=== PATIENT | female | born 1945 | race African-American/Black ===

== ENCOUNTER 2020-08-05 13:58 | Inpatient (IN) | payer MEDICARE, OTHER ==
[~2020-08-05] VITALS: Ht 160 cm; Wt 100.7 kg
[~2020-08-05 13:58] MED LIST: ASPI-1406; ATOR20TA65; BENA40TA9; CARV6.2548; DILT180C87; PANT40TA51; PIOG15TA66
[2020-08-05] MEDS ORDERED: METOPROLOL TARTRATE 25MG TABLET PEG ONE (14:30)
[2020-08-05] MEDS: METOPROLOL TARTRATE 5MG/5ML VIAL IV SCH ×3 (14:49→15:36)
[2020-08-05 14:50] LABS: BG BASE EXCESS 0.2 mmol/L (-2.0-2.0); BG CARBOXYHEMOGLOBIN 0.8 % (0.5-1.5); BG DEOXYHEMOGLOBIN 7.2 % (0.0-5.0); BG FRACTION INSPIRED OXYGEN 28; BG HCO3 ACT 24.4 mmol/L (22.0-26.0); BG METHEMOGLOBIN 1.2 % (0.0-1.5); BG OXYGEN SATURATION 92.7 % (92.0-98.5); BG OXYHEMOGLOBIN 90.8 % (94.0-97.0); BG PCO2 37.5 mmHg (35.0-45.0); BG PH 7.432 (7.350-7.450); BG PO2 75.8 mmHg (75.0-100.0); BG SAMPLE SITE RIGHT RADIAL; BG TOTAL HEMOGLOBIN 7.1 g/dL (12.0-18.0); BG VENT MODE NASAL CANNULA
[2020-08-05 15:20] LABS: BASOPHILS % 0.5 % (0.0-2.0); CHLORIDE 113 mEq/L (98-107); EOSINOPHILS % 0.3 % (0.0-5.0); HEMATOCRIT. 22.5 % (36.0-48.0); LYMPHOCYTES % 10.9 % (20.0-50.0); MEAN CORPUSCULAR HEMOGLOBIN 17.3 pg (28.0-32.0); MEAN CORPUSCULAR VOLUME 61.1 fL (81.0-99.0); MEAN PLATELET VOLUME 9.8 fl (7.4-10.4); MONOCYTES % 8.9 % (2.0-8.0); NEUTROPHILS % 79.4 % (40.0-76.0); PLATELET 335 x1000/uL (130-400); RED BLOOD CELL COUNT 3.69 mill/uL (4.2-5.4); RED CELL DISTRIBUTION WIDTH 16.2 % (11.6-14.6)
[2020-08-05 15:22] LABS: HEMOGLOBIN. 6.4 g/dL (12.0-16.0); INR 2.1; PROTHROMBIN TIME 21.3 sec (9.6-11.0)
[2020-08-05] MEDS ORDERED: AMIODARONE HCL 150 MG in DEXT 5% WATER 97 ML IV ONE (15:30)
[2020-08-05] MEDS ORDERED: AMIODARONE HCL 150 MG in DEXT 5% WATER 97 ML IV NR (15:45)
[2020-08-05] MEDS ORDERED: DOXYCYCLINE 100MG in DEXTROSE 5% WATER 100ML IV NR (15:56)
[2020-08-05] MEDS ORDERED: CEFTRIAXONE 2 G PREMIX 50 ML IV ONE (16:00)
[2020-08-05] MEDS ORDERED: DOXYCYCLINE HYCLATE 100 MG/VIAL IV ONE (16:00)
[2020-08-05 16:15] LABS: PLATELET ESTIMATE NORMAL
[2020-08-05] MEDS ORDERED: AMIODARONE HCL 900 MG in DEXT 5% WATER 482 ML IV PRN (17:00)
[2020-08-05] MEDS: AMIODARONE HCL 900 MG in DEXT 5% WATER 482 ML IV PRN (17:28)
[2020-08-05] MEDS ORDERED: ONDANSETRON HCL 4MG/2ML INJ IV ONE (18:30)
[2020-08-05 23:57] LABS: HEMATOCRIT 31.6 % (36.0-48.0); HEMOGLOBIN 9.7 g/dL (12.0-16.0)
[2020-08-06] VITALS (31 sets, daily range): BP systolic 120–171; BP diastolic 64–112
[2020-08-06 00:16] LABS: INR 1.6; PROTHROMBIN TIME 16.6 sec (9.6-11.0)
[2020-08-06 03:46] LABS: CLARITY URINE CLEAR (CLEAR); COLOR URINE YELLOW (YELLOW); KETONES URINE TRACE (NEGATIVE); LEUKOCYTE ESTERASE URINE TRACE (NEGATIVE); NITRITE URINE NEGATIVE (NEGATIVE); OCCULT BLOOD URINE NEGATIVE (NEGATIVE); PH URINE 5.5 (4.5-8.0); PROTEIN URINE NEGATIVE (NEGATIVE); SPECIFIC GRAVITY URINE 1.019 (1.005-1.030)
[2020-08-06] MEDS: AMIODARONE HCL 900 MG in DEXT 5% WATER 482 ML IV PRN (10:35)
[2020-08-06] MEDS ORDERED: ACETAMINOPHEN 325MG TABLET PO PRN (12:30)
[2020-08-06] MEDS ORDERED: GUAIFENESIN 200MG/10ML SUGAR FREE UDC PO PRN (12:30)
[2020-08-06] MEDS ORDERED: MAGNESIUM/ALUMINUM HYDROXIDE/SIMETHICONE 30ML UDC PO PRN (12:30)
[2020-08-06] MEDS ORDERED: DOCUSATE SODIUM 100MG CAPSULE PO PRN (12:30)
[2020-08-06] MEDS ORDERED: HYDROCODONE/ACETAMINOPHEN 5/325MG TABLET PO PRN (12:30)
[2020-08-06] MEDS ORDERED: DEXTROSE 50% WATER 50ML SYRINGE IV PRN (12:30)
[2020-08-06] MEDS ORDERED: IPRATROPIUM/ALBUTEROL 0.5-3(2.5)MG/3ML NEB NEB PRN (12:30)
[2020-08-06] MEDS ORDERED: DIPHENHYDRAMINE 50MG/ML VIAL IV PRN (12:30)
[2020-08-06] MEDS ORDERED: CLONIDINE 0.1MG TABLET PO PRN (12:30)
[2020-08-06] MEDS ORDERED: LORAZEPAM 0.5MG TABLET PO PRN (12:30)
[2020-08-06] MEDS ORDERED: LEVOFLOXACIN 500MG PREMIX 100 ML IV SCH ×2 (12:30→13:00)
[2020-08-06] MEDS ORDERED: NA PHOS,M-B/NA PHOS,DI-BA ENEMA 118ML PR PRN (12:30)
[2020-08-06] MEDS ORDERED: ASPIRIN 81MG EC TABLET PO SCH (13:00)
[2020-08-06] MEDS: BLOOD SUGAR DIAGNOSTIC STRIP TEST SCH ×3 (13:00→20:51)
[2020-08-06] MEDS: INSULIN LISPRO 100 UNITS/ML SUBCUT SCH ×3 (13:20→20:51)
[2020-08-06] MEDS ORDERED: POTASSIUM CHLORIDE 20MEQ TABLET SR PO NR (14:00)
[2020-08-06] MEDS: ONDANSETRON HCL 4MG/2ML INJ IV PRN (14:12)
[2020-08-06] MEDS: PANTOPRAZOLE SODIUM 40 MG/VIAL IV SCH ×2 (14:12→20:52)
[2020-08-06] MEDS: DILTIAZEM HCL 125 MG in DEXT 5% WATER 100 ML IV PRN ×2 (14:29→23:00)
[2020-08-06] MEDS ORDERED: LEVOFLOXACIN 500MG PREMIX 100 ML IV NR (15:00)
[2020-08-06] MEDS ORDERED: FUROSEMIDE 40MG/4ML VIAL IVP NR (15:45)
[2020-08-06 16:17] LABS: HEMATOCRIT. 29.1 % (36.0-48.0); HEMOGLOBIN. 8.9 g/dL (12.0-16.0); MEAN CORPUSCULAR HEMOGLOBIN 19.2 pg (28.0-32.0); MEAN PLATELET VOLUME 9.6 fl (7.4-10.4); PLATELET 312 x1000/uL (130-400); RED BLOOD CELL COUNT 4.62 mill/uL (4.2-5.4); RED CELL DISTRIBUTION WIDTH 21.1 % (11.6-14.6)
[2020-08-06 16:37] LABS: CREATINE KINASE 21 IU/L (26-192)
[2020-08-06 16:38] LABS: CREATINE KINASE MB FRACTION < 1.0 ng/mL (0.5-3.6)
[2020-08-06 16:40] LABS: TOTAL IRON BINDING CAPACITY 446 ug/dL (250-450)
[2020-08-06 16:47] LABS: CHLORIDE 112 mEq/L (98-107)
[2020-08-06] MEDS: DILTIAZEM HCL 60MG TABLET PO SCH (18:00)
[2020-08-06 18:15] LABS: NUCLEATED RED BLOOD CELLS 23 /100 WBC; PLATELET ESTIMATE NORMAL
[2020-08-06] MEDS ORDERED: DEXT 5%/0.45% NACL 1000ML 1,000 ML IV SCH (18:15)
[2020-08-06] MEDS ORDERED: PRAV80TA21 MT (18:19)
[2020-08-06] MEDS ORDERED: AMLO5TAB4 MT (18:19)
[2020-08-06] MEDS ORDERED: SUCR1TAB MT (18:19)
[2020-08-06] MEDS ORDERED: RIVA20TA MT (18:19)
[2020-08-06] MEDS: DEXT 5%/LACTATED RINGERS 1,000 ML IV SCH (19:27)
[2020-08-06] MEDS ORDERED: LEVETIRACETAM 500 MG in SODIUM CHLORIDE 0.9% 100 ML IV SCH (19:30)
[2020-08-06] MEDS: LEVETIRACETAM 500MG PREMIX 100 ML IV SCH (20:24)
[2020-08-06] MEDS: SUCRALFATE 1 G/10 ML UDC PO SCH (20:52)
[2020-08-06] MEDS ORDERED: GADOTERATE MEGLUMINE 5 MMOL/10 ML VIAL IV ONE (21:00)
[2020-08-07] VITALS (69 sets, daily range): BP systolic 82–147; BP diastolic 46–101
[2020-08-07] MEDS: DEXAMETHASONE 10 MG/ML VIAL IV SCH ×3 (00:05→11:07)
[2020-08-07] MEDS: DILTIAZEM HCL 60MG TABLET PO SCH ×5 (00:06→23:06)
[2020-08-07 01:01] LABS: CREATINE KINASE 26 IU/L (26-192)
[2020-08-07 01:02] LABS: CREATINE KINASE MB FRACTION < 1.0 ng/mL (0.5-3.6)
[2020-08-07 05:44] LABS: BASOPHILS % 0.2 % (0.0-2.0); EOSINOPHILS % 0.3 % (0.0-5.0); HEMATOCRIT. 27.6 % (36.0-48.0); HEMOGLOBIN. 8.6 g/dL (12.0-16.0); LYMPHOCYTES % 8.2 % (20.0-50.0); MEAN CORPUSCULAR HEMOGLOBIN 19.9 pg (28.0-32.0); MEAN CORPUSCULAR VOLUME 64.1 fL (81.0-99.0); MONOCYTES % 3.8 % (2.0-8.0); NEUTROPHILS % 87.5 % (40.0-76.0); RED BLOOD CELL COUNT 4.31 mill/uL (4.2-5.4); RED CELL DISTRIBUTION WIDTH 20.2 % (11.6-14.6)
[2020-08-07 05:50] LABS: CHLORIDE 108 mEq/L (98-107)
[2020-08-07 06:02] LABS: CREATINE KINASE MB FRACTION < 1.0 ng/mL (0.5-3.6); LDL CHOLESTEROL 75 mg/dL (5-100)
[2020-08-07 06:03] LABS: HDL CHOLESTEROL 38 mg/dL (40-59); T4 FREE 1.98 ng/dL (0.76-1.46)
[2020-08-07 06:04] LABS: CREATINE KINASE 19 IU/L (26-192)
[2020-08-07] MEDS: INSULIN LISPRO 100 UNITS/ML SUBCUT SCH ×4 (06:22→20:14)
[2020-08-07] MEDS: SUCRALFATE 1 G/10 ML UDC PO SCH ×4 (06:22→20:12)
[2020-08-07] MEDS: BLOOD SUGAR DIAGNOSTIC STRIP TEST SCH ×4 (06:22→20:14)
[2020-08-07 06:28] LABS: D-DIMER 0.86 mg/L FEU (<0.50); INR 1.6; PROTHROMBIN TIME 16.7 sec (9.6-11.0)
[2020-08-07] MEDS ORDERED: LIDOCAINE HCL 1% 20ML VIAL (Pyxis) INJ ONE (07:19)
[2020-08-07] MEDS: PANTOPRAZOLE SODIUM 40 MG/VIAL IV SCH ×2 (08:52→20:12)
[2020-08-07] MEDS: LEVETIRACETAM 500MG PREMIX 100 ML IV SCH ×2 (08:52→20:12)
[2020-08-07] MEDS: DILTIAZEM HCL 125 MG in DEXT 5% WATER 100 ML IV PRN ×2 (08:54→16:49)
[2020-08-07] MEDS ORDERED: METOPROLOL TARTRATE 5MG/5ML VIAL IV NR (10:15)
[2020-08-07] MEDS ORDERED: LEVOFLOXACIN 250MG PREMIX 50 ML IV SCH (11:00)
[2020-08-07] MEDS: LEVOFLOXACIN 250MG PREMIX 50 ML IV SCH (11:07)
[2020-08-07] MEDS: DEXT 5%/LACTATED RINGERS 1,000 ML IV SCH (11:10)
[2020-08-07] MEDS ORDERED: POTASSIUM CHLORIDE INJ 40 MEQ in DEXT 5% WATER 250 ML IV ONE (12:00)
[2020-08-07 12:07] LABS: MEAN PLATELET VOLUME 9.5 fl (7.4-10.4); PLATELET 271 x1000/uL (130-400)
[2020-08-07] MEDS ORDERED: SENNOSIDES/DOCUSATE SOD 8.6/50MG TABLET PO PRN (15:45)
[2020-08-07] MEDS: FUROSEMIDE 40MG/4ML VIAL IVP SCH (16:29)
[2020-08-07] MEDS: IRON SUCROSE COMPLEX 100 MG/5 ML ML IV SCH (16:37)
[2020-08-07] MEDS: DEXAMETHASONE 4MG/ML 1ML VIAL IV SCH ×2 (18:08→23:06)
[2020-08-07 20:10] LABS: HEMATOCRIT 26.6 % (36.0-48.0); HEMOGLOBIN 8.4 g/dL (12.0-16.0)
[2020-08-07] MEDS: METOPROLOL TARTRATE 25MG TABLET PO SCH (20:13)
[2020-08-07] MEDS: ENOXAPARIN 60MG/0.6ML SYR SUBCUT SCH (20:14)
[2020-08-08] VITALS (93 sets, daily range): BP systolic 78–175; BP diastolic 39–137
[2020-08-08] MEDS: DILTIAZEM HCL 125 MG in DEXT 5% WATER 100 ML IV PRN ×3 (01:24→19:13)
[2020-08-08] MEDS: DEXAMETHASONE 4MG/ML 1ML VIAL IV SCH ×4 (05:16→23:12)
[2020-08-08] MEDS: DILTIAZEM HCL 60MG TABLET PO SCH ×2 (05:17→11:22)
[2020-08-08 05:26] LABS: HEMATOCRIT. 27.5 % (36.0-48.0); HEMOGLOBIN. 8.4 g/dL (12.0-16.0); MEAN CORPUSCULAR HEMOGLOBIN 19.4 pg (28.0-32.0); MEAN CORPUSCULAR VOLUME 63.4 fL (81.0-99.0); RED BLOOD CELL COUNT 4.33 mill/uL (4.2-5.4)
[2020-08-08] MEDS ORDERED: DIGOXIN 500MCG/2ML AMP IV NR ×2 (05:30→07:30)
[2020-08-08] MEDS: SUCRALFATE 1 G/10 ML UDC PO SCH ×4 (05:40→20:19)
[2020-08-08 05:53] LABS: CHLORIDE 105 mEq/L (98-107)
[2020-08-08] MEDS: BLOOD SUGAR DIAGNOSTIC STRIP TEST SCH ×4 (05:55→20:21)
[2020-08-08] MEDS: INSULIN LISPRO 100 UNITS/ML SUBCUT SCH ×4 (06:05→20:21)
[2020-08-08 08:12] LABS: NUCLEATED RED BLOOD CELLS 2 /100 WBC
[2020-08-08 08:15] LABS: PLATELET ESTIMATE NORMAL
[2020-08-08 08:16] LABS: MEAN PLATELET VOLUME 9.7 fl (7.4-10.4); PLATELET 289 x1000/uL (130-400)
[2020-08-08] MEDS: ENOXAPARIN 60MG/0.6ML SYR SUBCUT SCH (08:41)
[2020-08-08] MEDS: PANTOPRAZOLE SODIUM 40 MG/VIAL IV SCH ×2 (08:41→20:19)
[2020-08-08] MEDS: IRON SUCROSE COMPLEX 100 MG/5 ML ML IV SCH (08:41)
[2020-08-08] MEDS: FUROSEMIDE 40MG/4ML VIAL IVP SCH (08:41)
[2020-08-08] MEDS: METOPROLOL TARTRATE 25MG TABLET PO SCH (08:42)
[2020-08-08] MEDS: LEVETIRACETAM 500MG PREMIX 100 ML IV SCH ×2 (08:43→20:19)
[2020-08-08] MEDS: BISACODYL 5MG TABLET PO SCH (08:43)
[2020-08-08] MEDS: LEVOFLOXACIN 250MG PREMIX 50 ML IV SCH (11:23)
[2020-08-08] MEDS: ONDANSETRON HCL 4MG/2ML INJ IV PRN (15:09)
[2020-08-08] MEDS: DILTIAZEM HCL 90MG TABLET PO SCH ×2 (17:09→23:12)
[2020-08-08] MEDS: METOPROLOL TARTRATE 50MG TABLET PO SCH (20:19)
[2020-08-08] MEDS: ENOXAPARIN 100MG/ML SYR SUBCUT SCH (20:20)
[2020-08-09] VITALS (69 sets, daily range): BP systolic 107–158; BP diastolic 27–114
[2020-08-09] MEDS: DEXAMETHASONE 4MG/ML 1ML VIAL IV SCH (05:24)
[2020-08-09] MEDS: DILTIAZEM HCL 90MG TABLET PO SCH (05:25)
[2020-08-09 05:48] LABS: CHLORIDE 103 mEq/L (98-107)
[2020-08-09 05:53] LABS: HEMATOCRIT. 29.6 % (36.0-48.0); HEMOGLOBIN. 8.9 g/dL (12.0-16.0); MEAN CORPUSCULAR HEMOGLOBIN 19.2 pg (28.0-32.0); MEAN CORPUSCULAR VOLUME 63.7 fL (81.0-99.0); MEAN PLATELET VOLUME 9.5 fl (7.4-10.4); PLATELET 317 x1000/uL (130-400); RED BLOOD CELL COUNT 4.65 mill/uL (4.2-5.4); RED CELL DISTRIBUTION WIDTH 22.1 % (11.6-14.6)
[2020-08-09] MEDS: BLOOD SUGAR DIAGNOSTIC STRIP TEST SCH ×4 (06:01→20:54)
[2020-08-09] MEDS: SUCRALFATE 1 G/10 ML UDC PO SCH ×4 (06:01→20:53)
[2020-08-09] MEDS: INSULIN LISPRO 100 UNITS/ML SUBCUT SCH ×4 (06:01→20:55)
[2020-08-09] MEDS: DILTIAZEM HCL 125 MG in DEXT 5% WATER 100 ML IV PRN (06:10)
[2020-08-09 07:37] LABS: NUCLEATED RED BLOOD CELLS 3 /100 WBC
[2020-08-09 07:38] LABS: PLATELET ESTIMATE NORMAL
[2020-08-09] MEDS: PANTOPRAZOLE SODIUM 40 MG/VIAL IV SCH ×2 (08:34→20:53)
[2020-08-09] MEDS: FUROSEMIDE 40MG/4ML VIAL IVP SCH (08:34)
[2020-08-09] MEDS: IRON SUCROSE COMPLEX 100 MG/5 ML ML IV SCH (08:34)
[2020-08-09] MEDS: LEVETIRACETAM 500MG PREMIX 100 ML IV SCH ×2 (08:35→19:42)
[2020-08-09] MEDS: BISACODYL 5MG TABLET PO SCH (08:35)
[2020-08-09] MEDS: METOPROLOL TARTRATE 50MG TABLET PO SCH ×3 (08:35→17:23)
[2020-08-09] MEDS: ENOXAPARIN 100MG/ML SYR SUBCUT SCH ×2 (08:35→20:53)
[2020-08-09] MEDS ORDERED: POTASSIUM CHLORIDE 20MEQ/PACKET PO NR (09:30)
[2020-08-09] MEDS: LEVOFLOXACIN 250MG PREMIX 50 ML IV SCH (11:07)
[2020-08-09] MEDS: DILTIAZEM HCL 60MG TABLET PO SCH ×2 (12:54→17:22)
[2020-08-09] MEDS: SILDENAFIL CITRATE 20MG TABLET PO SCH (21:01)
[2020-08-10] VITALS (23 sets, daily range): BP systolic 114–154; BP diastolic 19–80
[2020-08-10] MEDS: DILTIAZEM HCL 60MG TABLET PO SCH ×3 (00:25→11:57)
[2020-08-10] MEDS: SUCRALFATE 1 G/10 ML UDC PO SCH ×4 (05:36→20:21)
[2020-08-10] MEDS: SILDENAFIL CITRATE 20MG TABLET PO SCH ×3 (05:37→20:23)
[2020-08-10 05:55] LABS: BASOPHILS % 0.1 % (0.0-2.0); HEMATOCRIT. 31.4 % (36.0-48.0); HEMOGLOBIN. 9.5 g/dL (12.0-16.0); LYMPHOCYTES % 11.3 % (20.0-50.0); MEAN CORPUSCULAR HEMOGLOBIN 19.1 pg (28.0-32.0); MEAN CORPUSCULAR VOLUME 63.1 fL (81.0-99.0); MEAN PLATELET VOLUME 9.4 fl (7.4-10.4); MONOCYTES % 7.4 % (2.0-8.0); NEUTROPHILS % 81.2 % (40.0-76.0); PLATELET 339 x1000/uL (130-400); RED BLOOD CELL COUNT 4.97 mill/uL (4.2-5.4); RED CELL DISTRIBUTION WIDTH 22.6 % (11.6-14.6)
[2020-08-10] MEDS: BLOOD SUGAR DIAGNOSTIC STRIP TEST SCH ×4 (05:59→20:21)
[2020-08-10] MEDS: INSULIN LISPRO 100 UNITS/ML SUBCUT SCH ×4 (06:00→20:33)
[2020-08-10] MEDS: METOPROLOL TARTRATE 50MG TABLET PO SCH ×3 (08:11→17:24)
[2020-08-10] MEDS: ENOXAPARIN 100MG/ML SYR SUBCUT SCH ×2 (08:11→20:22)
[2020-08-10] MEDS: BISACODYL 5MG TABLET PO SCH (08:11)
[2020-08-10] MEDS: FUROSEMIDE 40MG/4ML VIAL IVP SCH (08:11)
[2020-08-10] MEDS: PANTOPRAZOLE SODIUM 40 MG/VIAL IV SCH ×2 (08:11→20:21)
[2020-08-10] MEDS: LEVETIRACETAM 500MG PREMIX 100 ML IV SCH ×2 (08:12→20:21)
[2020-08-10 09:44] LABS: BG BASE EXCESS 3.2 mmol/L (-2.0-2.0); BG DEOXYHEMOGLOBIN 8.3 % (0.0-5.0); BG FRACTION INSPIRED OXYGEN 21; BG METHEMOGLOBIN 0.7 % (0.0-1.5); BG OXYGEN SATURATION 91.6 % (92.0-98.5); BG PCO2 43.8 mmHg (35.0-45.0); BG PH 7.424 (7.350-7.450); BG PO2 66.3 mmHg (75.0-100.0); BG SAMPLE SITE LEFT RADIAL; BG TOTAL HEMOGLOBIN 10.2 g/dL (12.0-18.0); BG VENT MODE ROOM AIR
[2020-08-10] MEDS: LEVOFLOXACIN 250MG PREMIX 50 ML IV SCH (10:14)
[2020-08-10] MEDS ORDERED: IPRATROPIUM/ALBUTEROL 0.5-3(2.5)MG/3ML NEB NEB PRN (14:30)
[2020-08-10] MEDS: DILTIAZEM HCL 120MG CAPSULE CD 24HR PO SCH (17:23)
[2020-08-11] VITALS: BP 129/55
[2020-08-11 03:40] VITALS: BP 129/60
[2020-08-11] MEDS: SILDENAFIL CITRATE 20MG TABLET PO SCH ×2 (05:12→13:25)
[2020-08-11 07:04] LABS: CHLORIDE 103 mEq/L (98-107)
[2020-08-11 07:28] LABS: T4 FREE 1.56 ng/dL (0.76-1.46)
[2020-08-11 07:32] LABS: HEMATOCRIT. 32.2 % (36.0-48.0); MEAN CORPUSCULAR HEMOGLOBIN 19.9 pg (28.0-32.0); MEAN CORPUSCULAR VOLUME 63.8 fL (81.0-99.0); RED BLOOD CELL COUNT 5.05 mill/uL (4.2-5.4); RED CELL DISTRIBUTION WIDTH 22.2 % (11.6-14.6)
[2020-08-11 08:00] VITALS: BP 128/95
[2020-08-11] MEDS: INSULIN LISPRO 100 UNITS/ML SUBCUT SCH ×3 (08:00→17:09)
[2020-08-11] MEDS: ENOXAPARIN 100MG/ML SYR SUBCUT SCH (08:31)
[2020-08-11] MEDS: LEVETIRACETAM 500MG PREMIX 100 ML IV SCH (08:31)
[2020-08-11] MEDS: BISACODYL 5MG TABLET PO SCH (08:32)
[2020-08-11] MEDS: METOPROLOL TARTRATE 50MG TABLET PO SCH ×3 (08:32→17:09)
[2020-08-11] MEDS: DILTIAZEM HCL 120MG CAPSULE CD 24HR PO SCH ×2 (08:32→17:09)
[2020-08-11] MEDS: BLOOD SUGAR DIAGNOSTIC STRIP TEST SCH ×2 (08:33→17:09)
[2020-08-11] MEDS: SUCRALFATE 1 G/10 ML UDC PO SCH ×2 (08:36→17:08)
[2020-08-11] MEDS: PANTOPRAZOLE SODIUM 40 MG/VIAL IV SCH (08:36)
[2020-08-11] MEDS ORDERED: COSYNTROPIN 0.25MG/ML VIAL IV SCH (08:45)
[2020-08-11] MEDS ORDERED: POTASSIUM CHLORIDE 20MEQ TABLET SR PO SCH (09:00)
[2020-08-11 10:00] VITALS: BP 126/67
[2020-08-11 12:00] VITALS: BP 124/83
[2020-08-11 12:01] LABS: PLATELET 350 x1000/uL (130-400)
[2020-08-11 12:04] LABS: NUCLEATED RED BLOOD CELLS 3 /100 WBC
[2020-08-11 12:05] LABS: PLATELET ESTIMATE NORMAL
[2020-08-11] MEDS ORDERED: METO25TA6 MT ×3 (14:44→15:11)
[2020-08-11] MEDS ORDERED: ALBU90AE INH (14:44)
[2020-08-11] MEDS ORDERED: KEPP500 MT (14:44)
[2020-08-11] MEDS ORDERED: DILT120T13 PO (14:44)
[2020-08-11] MEDS ORDERED: REV20 MT (14:44)
[2020-08-11] MEDS ORDERED: APIX5TAB MT (14:44)
[2020-08-11] MEDS ORDERED: SUCR1TAB30 MT (14:44)
[2020-08-11] MEDS ORDERED: PROT40 MT (14:44)
[2020-08-11 16:00] VITALS: BP 118/58
[2020-08-11] MEDS ORDERED: APIXABAN 5 MG TABLET PO SCH (20:00)
[2020-08-12 04:11] LABS: FOLICLE STIMULATING HORMONE 21.8 mIU/mL (.); LUTEINIZING HORMONE 4.3 mIU/mL (.); PROLACTIN 17.4 ng/mL (4.8-23.3)
== END 2020-08-11 18:41 | disposition home health service (06) | DRG 811 ==
LOC: ER 14:09 → MICUSO 18:07 → EDBEDREQ 18:22 → EDBEDREQTM 18:22 → EDBEDREQSVC 08-06 11:26 → ENRESERV 08-06 11:38 → 6WST 08-06 12:31 → MICUSO 08-07 19:00 → 5EST 08-10 09:33 → 6WST 08-11 11:50
PROVIDERS: ADMIT Internal Medicine; ATTEND Internal Medicine
PROC: 30233N1 Transfusion of Nonautologous Red Blood Cells into Peripheral Vein, Percutaneous Approach (ICD-10-PCS; principal; 2020-08-05)
PROC: 02HV33Z Insertion of Infusion Device into Superior Vena Cava, Percutaneous Approach (ICD-10-PCS; 2020-08-07)
PROC: B548ZZA Ultrasonography of Superior Vena Cava, Guidance (ICD-10-PCS; 2020-08-07)
DX: D50.9 Iron deficiency anemia, unspecified (principal); J18.9 Pneumonia, unspecified organism; E43 Unspecified severe protein-calorie malnutrition; I50.33 Acute on chronic diastolic (congestive) heart failure; G93.40 Encephalopathy, unspecified; J44.0 Chronic obstructive pulmonary disease with (acute) lower respiratory infection; N17.9 Acute kidney failure, unspecified; D68.59 Other primary thrombophilia; I13.0 Hypertensive heart and chronic kidney disease with heart failure and stage 1 through stage 4 chronic kidney disease, or unspecified chronic kidney disease; I31.3 Pericardial effusion (noninflammatory); J91.8 Pleural effusion in other conditions classified elsewhere; I95.9 Hypotension, unspecified; I48.91 Unspecified atrial fibrillation; D32.9 Benign neoplasm of meninges, unspecified; D49.2 Neoplasm of unspecified behavior of bone, soft tissue, and skin; D49.6 Neoplasm of unspecified behavior of brain; E11.22 Type 2 diabetes mellitus with diabetic chronic kidney disease; E66.9 Obesity, unspecified; E78.00 Pure hypercholesterolemia, unspecified; E78.5 Hyperlipidemia, unspecified; I25.10 Atherosclerotic heart disease of native coronary artery without angina pectoris; I27.20 Pulmonary hypertension, unspecified; K44.9 Diaphragmatic hernia without obstruction or gangrene; N18.9 Chronic kidney disease, unspecified; Z86.16 Personal history of COVID-19; K57.90 Diverticulosis of intestine, part unspecified, without perforation or abscess without bleeding; Z20.822 Contact with and (suspected) exposure to COVID-19; I70.0 Atherosclerosis of aorta; E87.6 Hypokalemia; N26.1 Atrophy of kidney (terminal); Z79.01 Long term (current) use of anticoagulants; Z85.3 Personal history of malignant neoplasm of breast; Z79.899 Other long term (current) drug therapy; Z80.9 Family history of malignant neoplasm, unspecified; Z81.8 Family history of other mental and behavioral disorders; Z83.3 Family history of diabetes mellitus; Z90.10 Acquired absence of unspecified breast and nipple; Z90.49 Acquired absence of other specified parts of digestive tract; Z92.3 Personal history of irradiation; Z68.39 Body mass index [BMI] 39.0-39.9, adult; Z79.82 Long term (current) use of aspirin; R60.1 Generalized edema; R94.6 Abnormal results of thyroid function studies
CPT/HCPCS: 36415; 36600; 70553; 71045; 71250; 74176; 76604; 76700; 76937; 78580; 80048; 80053; 80061; 81003; 82024; 82088; 82270; 82375; 82533; 82550; 82553; 82728; 82805; 82962; 83001; 83002; 83036; 83540; 83550; 83735; 83880; 84145; 84146; 84439; 84443; 84481; 84484; 85014; 85018; 85025; 85044; 85049; 85379; 85384; 86300; 86850; 86900; 86920; 87426; 93005; 93306; 93880; 93970; 97116; 97162; 99291; A9577; C1725; C1769; C1893; C9113; J0282; J0696; J0834; J1100; J1160; J1650; J1815; J1940; J1953; J1956; J2405; J3480; J3490; J7040; J7050; J7060; J7121; P9016; U0003; A4315

== ENCOUNTER 2021-04-29 15:10 | Inpatient (IN) | payer MEDICARE, OTHER ==
[~2021-04-29] VITALS: Ht 160 cm; Wt 83.9 kg
[~2021-04-29 15:10] MED LIST changes: +ALBU90AE INH; +APIX5TAB MT; -ASPI-1406; -BENA40TA9; -CARV6.2548; +DILT120T13 PO; -DILT180C87; +KEPP500 MT; +METO25TA6 MT; -PANT40TA51; -PIOG15TA66; +PRAV80TA21 MT; +PROT40 MT; +REV20 MT; +SUCR1TAB MT; +SUCR1TAB30 MT
[2021-04-29] MEDS ORDERED: POTA20TA82 PO (15:27)
[2021-04-29] MEDS ORDERED: FURO40SO PO (15:27)
[2021-04-29] MEDS ORDERED: BENA40TA9 PO (15:27)
[2021-04-29] MEDS ORDERED: AMLO5TAB88 PO (15:27)
[2021-04-29] MEDS ORDERED: CARV12.545 PO (15:27)
[2021-04-29] MEDS ORDERED: HYDR-4134 PO (15:27)
[2021-04-29] MEDS ORDERED: ACETAMINOPHEN 650MG SUPP PR PRN (16:00)
[2021-04-29] MEDS ORDERED: IPRATROPIUM/ALBUTEROL 0.5-3(2.5)MG/3ML NEB NEB PRN (16:00)
[2021-04-29] MEDS ORDERED: LORAZEPAM 0.5MG TABLET PO PRN (16:00)
[2021-04-29] MEDS ORDERED: DOCUSATE SODIUM 100MG CAPSULE PO PRN (16:00)
[2021-04-29] MEDS ORDERED: NA PHOS,M-B/NA PHOS,DI-BA ENEMA 118ML PR PRN (16:00)
[2021-04-29] MEDS ORDERED: DEXTROSE 50% WATER 50ML SYRINGE IV PRN (16:00)
[2021-04-29] MEDS ORDERED: ONDANSETRON HCL 4MG/2ML INJ IV PRN (16:00)
[2021-04-29] MEDS ORDERED: MAGNESIUM/ALUMINUM HYDROXIDE/SIMETHICONE 30ML UDC PO PRN (16:00)
[2021-04-29] MEDS ORDERED: DIPHENHYDRAMINE 50MG/ML VIAL IV PRN (16:00)
[2021-04-29] MEDS ORDERED: CEFTRIAXONE 1 G PREMIX 50 ML IV NR (16:00)
[2021-04-29] MEDS ORDERED: NALOXONE HCL 0.4MG/ML VIAL IV PRN (16:15)
[2021-04-29 17:49] LABS: HEMATOCRIT. 36.9 % (36.0-48.0); HEMOGLOBIN. 11.5 g/dL (12.0-16.0); LYMPHOCYTES % 14.7 % (20.0-50.0); MEAN CORPUSCULAR HEMOGLOBIN 21.7 pg (28.0-32.0); MEAN CORPUSCULAR VOLUME 69.8 fL (81.0-99.0); MEAN PLATELET VOLUME 9.3 fl (7.4-10.4); MONOCYTES % 10.8 % (2.0-8.0); NEUTROPHILS % 69.5 % (40.0-76.0); PLATELET 166 x1000/uL (130-400); RED BLOOD CELL COUNT 5.28 mill/uL (4.2-5.4)
[2021-04-29 17:50] LABS: CHLORIDE 111 mEq/L (98-107)
[2021-04-29] MEDS: IPRATROPIUM/ALBUTEROL 0.5-3(2.5)MG/3ML NEB HHN SCH (18:00)
[2021-04-29] MEDS: BUDESONIDE 0.5MG/2ML NEB HHN SCH (18:00)
[2021-04-29] MEDS: METHYLPREDNISOLONE SOD SUCC 40 MG/ML VIAL IV SCH (18:39)
[2021-04-29] MEDS: FUROSEMIDE 40MG/4ML VIAL IVP SCH (18:39)
[2021-04-29] MEDS: SILDENAFIL CITRATE 20MG TABLET PO SCH (18:40)
[2021-04-29] MEDS: LEVETIRACETAM 500MG TABLET PO SCH (18:40)
[2021-04-29] MEDS: SUCRALFATE 1G TABLET PO SCH ×2 (18:40→22:09)
[2021-04-29 18:41] LABS: PLATELET ESTIMATE NORMAL
[2021-04-29] MEDS: BLOOD SUGAR DIAGNOSTIC STRIP TEST SCH ×2 (20:22→20:26)
[2021-04-29] MEDS: INSULIN LISPRO 100 UNITS/ML SUBCUT SCH ×2 (20:25→21:00)
[2021-04-29] MEDS: ATORVASTATIN CALCIUM 20MG TABLET PO SCH (21:38)
[2021-04-29] MEDS: FAMOTIDINE 20MG TABLET PO SCH (21:38)
[2021-04-30 00:05] LABS: CLARITY URINE CLEAR (CLEAR); COLOR URINE YELLOW (YELLOW); KETONES URINE NEGATIVE (NEGATIVE); LEUKOCYTE ESTERASE URINE NEGATIVE (NEGATIVE); NITRITE URINE NEGATIVE (NEGATIVE); OCCULT BLOOD URINE NEGATIVE (NEGATIVE); PROTEIN URINE NEGATIVE (NEGATIVE); SPECIFIC GRAVITY URINE 1.008 (1.005-1.030)
[2021-04-30 00:45] VITALS: BP 157/80
[2021-04-30] MEDS: METHYLPREDNISOLONE SOD SUCC 40 MG/ML VIAL IV SCH ×3 (01:23→16:01)
[2021-04-30] MEDS: ACETAMINOPHEN 325MG TABLET PO PRN (01:24)
[2021-04-30] MEDS: HYDROCODONE/ACETAMINOPHEN 5/325MG TABLET PO PRN (03:10)
[2021-04-30] MEDS: BLOOD SUGAR DIAGNOSTIC STRIP TEST SCH (06:18)
[2021-04-30] MEDS: SUCRALFATE 1G TABLET PO SCH ×4 (06:18→21:03)
[2021-04-30] MEDS: INSULIN LISPRO 100 UNITS/ML SUBCUT SCH (06:19)
[2021-04-30 07:38] LABS: CREATINE KINASE 149 IU/L (26-192)
[2021-04-30 07:39] LABS: CREATINE KINASE MB FRACTION < 1.0 ng/mL (0.5-3.6)
[2021-04-30 08:00] VITALS: BP 154/93
[2021-04-30] MEDS: APIXABAN 5 MG TABLET PO SCH ×2 (08:55→16:02)
[2021-04-30] MEDS: LEVETIRACETAM 500MG TABLET PO SCH ×2 (08:55→08:59)
[2021-04-30] MEDS: FUROSEMIDE 40MG/4ML VIAL IVP SCH (08:55)
[2021-04-30] MEDS: SILDENAFIL CITRATE 20MG TABLET PO SCH ×3 (08:56→16:02)
[2021-04-30] MEDS ORDERED: MEDICATION NOT ON FORMULARY EA (Pravastatin Sodium 1 TAB) MT SCH (09:00)
[2021-04-30 12:00] VITALS: BP 147/89
[2021-04-30 16:00] VITALS: BP 149/87
[2021-04-30] MEDS: CEFTRIAXONE 1,000 MG in DEXTROSE 5% WATER 50 ML IV SCH (16:01)
[2021-04-30 17:36] LABS: INR 1.1
[2021-04-30 18:00] LABS: CHLORIDE 105 mEq/L (98-107)
[2021-04-30 18:10] LABS: BASOPHILS % 0.2 % (0.0-2.0); HEMATOCRIT. 38.4 % (36.0-48.0); HEMOGLOBIN. 12.2 g/dL (12.0-16.0); LYMPHOCYTES % 12.7 % (20.0-50.0); MEAN CORPUSCULAR HEMOGLOBIN 21.9 pg (28.0-32.0); MEAN PLATELET VOLUME 9.6 fl (7.4-10.4); MONOCYTES % 2.8 % (2.0-8.0); NEUTROPHILS % 84.3 % (40.0-76.0); PLATELET 180 x1000/uL (130-400); RED BLOOD CELL COUNT 5.57 mill/uL (4.2-5.4); RED CELL DISTRIBUTION WIDTH 21.1 % (11.6-14.6)
[2021-04-30 18:12] LABS: T4 FREE 1.52 ng/dL (0.76-1.46)
[2021-04-30 20:00] VITALS: BP 155/93
[2021-04-30 20:57] LABS: CREATINE KINASE 49 IU/L (26-192)
[2021-04-30 20:58] LABS: CREATINE KINASE MB FRACTION < 1.0 ng/mL (0.5-3.6)
[2021-04-30] MEDS: ATORVASTATIN CALCIUM 20MG TABLET PO SCH (21:03)
[2021-04-30] MEDS: GUAIFENESIN 600MG ER TABLET PO SCH (21:03)
[2021-04-30] MEDS: FAMOTIDINE 20MG TABLET PO SCH (21:03)
[2021-05-01 00:02] VITALS: BP 144/86
[2021-05-01] MEDS: METHYLPREDNISOLONE SOD SUCC 40 MG/ML VIAL IV SCH ×3 (01:12→16:45)
[2021-05-01 05:00] VITALS: BP 169/103
[2021-05-01] MEDS: SUCRALFATE 1G TABLET PO SCH ×4 (05:31→21:55)
[2021-05-01] MEDS: CLONIDINE 0.1MG TABLET PO PRN ×3 (05:54→22:11)
[2021-05-01 06:47] LABS: HEMATOCRIT. 38.3 % (36.0-48.0); HEMOGLOBIN. 12.3 g/dL (12.0-16.0); LYMPHOCYTES % 10.3 % (20.0-50.0); MEAN CORPUSCULAR HEMOGLOBIN 22.1 pg (28.0-32.0); MEAN CORPUSCULAR VOLUME 68.7 fL (81.0-99.0); MEAN PLATELET VOLUME 9.5 fl (7.4-10.4); MONOCYTES % 4.7 % (2.0-8.0); PLATELET 183 x1000/uL (130-400); RED BLOOD CELL COUNT 5.57 mill/uL (4.2-5.4); RED CELL DISTRIBUTION WIDTH 21.4 % (11.6-14.6)
[2021-05-01 06:52] LABS: INR 1.1; PROTHROMBIN TIME 11.7 sec (9.6-11.0)
[2021-05-01 06:58] LABS: CHLORIDE 104 mEq/L (98-107)
[2021-05-01] MEDS: IPRATROPIUM/ALBUTEROL 0.5-3(2.5)MG/3ML NEB HHN SCH ×3 (07:54→19:51)
[2021-05-01] MEDS: BUDESONIDE 0.5MG/2ML NEB HHN SCH ×2 (07:55→19:57)
[2021-05-01 09:01] VITALS: BP 134/107
[2021-05-01] MEDS: SILDENAFIL CITRATE 20MG TABLET PO SCH ×3 (10:05→19:52)
[2021-05-01] MEDS: APIXABAN 5 MG TABLET PO SCH ×2 (10:05→16:45)
[2021-05-01] MEDS: GUAIFENESIN 600MG ER TABLET PO SCH ×2 (10:06→20:34)
[2021-05-01] MEDS: FUROSEMIDE 40MG/4ML VIAL IVP SCH (10:06)
[2021-05-01 12:00] VITALS: BP 134/88
[2021-05-01] MEDS: CEFTRIAXONE 1,000 MG in DEXTROSE 5% WATER 50 ML IV SCH (15:30)
[2021-05-01 16:00] VITALS: BP 155/94
[2021-05-01] MEDS ORDERED: AMLO5TAB88 PO (18:22)
[2021-05-01] MEDS ORDERED: CARV12.545 PO (18:24)
[2021-05-01] MEDS ORDERED: HYDR-4134 PO (18:25)
[2021-05-01] MEDS ORDERED: FURO40TA5 PO (18:25)
[2021-05-01] MEDS ORDERED: POTA20TA82 PO (18:27)
[2021-05-01] MEDS ORDERED: ATOR20TA PO (18:28)
[2021-05-01] MEDS ORDERED: SERT25TA74 PO (18:33)
[2021-05-01] MEDS ORDERED: PIOG15TA68 PO (18:33)
[2021-05-01 20:00] VITALS: BP 150/93
[2021-05-01] MEDS: ATORVASTATIN CALCIUM 20MG TABLET PO SCH (20:34)
[2021-05-01] MEDS: FAMOTIDINE 20MG TABLET PO SCH (20:34)
[2021-05-02] VITALS (27 sets, daily range): BP systolic 101–191; BP diastolic 21–140
[2021-05-02] MEDS: METHYLPREDNISOLONE SOD SUCC 40 MG/ML VIAL IV SCH ×3 (00:53→16:26)
[2021-05-02] MEDS: IPRATROPIUM/ALBUTEROL 0.5-3(2.5)MG/3ML NEB HHN SCH ×3 (02:56→12:15)
[2021-05-02] MEDS: SUCRALFATE 1G TABLET PO SCH ×4 (06:26→21:10)
[2021-05-02 06:54] LABS: BASOPHILS % 0.3 % (0.0-2.0); HEMATOCRIT. 35.7 % (36.0-48.0); HEMOGLOBIN. 11.7 g/dL (12.0-16.0); LYMPHOCYTES % 7.5 % (20.0-50.0); MEAN CORPUSCULAR HEMOGLOBIN 22.6 pg (28.0-32.0); MEAN CORPUSCULAR VOLUME 68.9 fL (81.0-99.0); NEUTROPHILS % 87.2 % (40.0-76.0); RED BLOOD CELL COUNT 5.19 mill/uL (4.2-5.4); RED CELL DISTRIBUTION WIDTH 20.8 % (11.6-14.6)
[2021-05-02 07:08] LABS: CHLORIDE 105 mEq/L (98-107)
[2021-05-02] MEDS: FUROSEMIDE 40MG/4ML VIAL IVP SCH ×2 (08:31→16:47)
[2021-05-02] MEDS: SILDENAFIL CITRATE 20MG TABLET PO SCH ×3 (08:31→16:26)
[2021-05-02] MEDS: APIXABAN 5 MG TABLET PO SCH ×2 (08:31→16:26)
[2021-05-02] MEDS: GUAIFENESIN 600MG ER TABLET PO SCH ×2 (08:31→21:11)
[2021-05-02] MEDS: BUDESONIDE 0.5MG/2ML NEB HHN SCH (08:47)
[2021-05-02 10:41] LABS: PLATELET ESTIMATE NORMAL
[2021-05-02 10:42] LABS: MEAN PLATELET VOLUME 9.5 fl (7.4-10.4); PLATELET 156 x1000/uL (130-400)
[2021-05-02] MEDS ORDERED: DILTIAZEM HCL 5MG/ML 5ML VIAL IV SCH (13:00)
[2021-05-02] MEDS: CEFTRIAXONE 1,000 MG in DEXTROSE 5% WATER 50 ML IV SCH (13:20)
[2021-05-02] MEDS: DILTIAZEM HCL 30MG TABLET PO SCH ×2 (13:55→21:11)
[2021-05-02] MEDS ORDERED: PHENYLEPHRINE 100 MG in DEXT 5% WATER 240 ML IV PRN (16:15)
[2021-05-02] MEDS: DIGOXIN 500MCG/2ML AMP IV NR ×2 (16:42→16:43)
[2021-05-02] MEDS: DILTIAZEM HCL 125 MG in DEXT 5% WATER 100 ML IV SCH (19:18)
[2021-05-02] MEDS: MIDODRINE HCL 5MG TABLET PO SCH (20:54)
[2021-05-02] MEDS: FAMOTIDINE 20MG TABLET PO SCH (21:10)
[2021-05-02] MEDS: ATORVASTATIN CALCIUM 20MG TABLET PO SCH (21:10)
[2021-05-02] MEDS: METOPROLOL TARTRATE 50MG TABLET PO SCH (22:23)
[2021-05-02] MEDS ORDERED: DIGOXIN 500MCG/2ML AMP IV NR (22:30)
[2021-05-03] VITALS (58 sets, daily range): BP systolic 96–198; BP diastolic 24–139
[2021-05-03] MEDS: IPRATROPIUM BROMIDE (0.02%) 0.5MG/2.5ML NEB HHN SCH ×4 (00:04→20:14)
[2021-05-03] MEDS: BUDESONIDE 0.5MG/2ML NEB HHN SCH ×3 (00:04→20:14)
[2021-05-03] MEDS: METHYLPREDNISOLONE SOD SUCC 40 MG/ML VIAL IV SCH ×3 (00:33→20:47)
[2021-05-03] MEDS: HYDROCODONE/ACETAMINOPHEN 5/325MG TABLET PO PRN (02:59)
[2021-05-03] MEDS: DILTIAZEM HCL 125 MG in DEXT 5% WATER 100 ML IV SCH ×2 (04:39→15:00)
[2021-05-03] MEDS: GUAIFENESIN 200MG/10ML SUGAR FREE UDC PO PRN (05:58)
[2021-05-03] MEDS: DILTIAZEM HCL 30MG TABLET PO SCH ×4 (05:58→22:46)
[2021-05-03 06:06] LABS: HEMATOCRIT. 37.9 % (36.0-48.0); HEMOGLOBIN. 12.2 g/dL (12.0-16.0); MEAN CORPUSCULAR HEMOGLOBIN 22.2 pg (28.0-32.0); MEAN CORPUSCULAR VOLUME 68.7 fL (81.0-99.0); MEAN PLATELET VOLUME 9.3 fl (7.4-10.4); PLATELET 180 x1000/uL (130-400); RED BLOOD CELL COUNT 5.51 mill/uL (4.2-5.4); RED CELL DISTRIBUTION WIDTH 20.5 % (11.6-14.6)
[2021-05-03 06:11] LABS: CHLORIDE 101 mEq/L (98-107)
[2021-05-03] MEDS: SUCRALFATE 1G TABLET PO SCH ×4 (07:50→20:48)
[2021-05-03] MEDS ORDERED: POTASSIUM CHLORIDE 20MEQ TABLET SR PO SCH (09:00)
[2021-05-03] MEDS: FUROSEMIDE 40MG/4ML VIAL IVP SCH ×2 (09:10→16:37)
[2021-05-03] MEDS: SILDENAFIL CITRATE 20MG TABLET PO SCH ×3 (09:11→16:36)
[2021-05-03] MEDS: GUAIFENESIN 600MG ER TABLET PO SCH ×2 (09:11→20:48)
[2021-05-03] MEDS: METOPROLOL TARTRATE 50MG TABLET PO SCH ×2 (09:11→20:52)
[2021-05-03] MEDS: APIXABAN 5 MG TABLET PO SCH ×2 (09:42→16:36)
[2021-05-03] MEDS: MIDODRINE HCL 5MG TABLET PO SCH ×3 (09:53→16:36)
[2021-05-03 09:59] LABS: PLATELET ESTIMATE NORMAL
[2021-05-03] MEDS ORDERED: POTASSIUM CHLORIDE INJ 40 MEQ in DEXT 5% WATER 250 ML IV SCH (10:00)
[2021-05-03] MEDS ORDERED: DIGOXIN 250MCG TABLET PO NR ×3 (10:15→22:00)
[2021-05-03] MEDS: CEFTRIAXONE 1,000 MG in DEXTROSE 5% WATER 50 ML IV SCH (16:07)
[2021-05-03] MEDS: FAMOTIDINE 20MG TABLET PO SCH (20:48)
[2021-05-03] MEDS: ATORVASTATIN CALCIUM 20MG TABLET PO SCH (20:48)
[2021-05-04] VITALS (60 sets, daily range): BP systolic 62–181; BP diastolic 21–157
[2021-05-04] MEDS: IPRATROPIUM BROMIDE (0.02%) 0.5MG/2.5ML NEB HHN SCH ×5 (02:18→20:24)
[2021-05-04 05:30] LABS: HEMATOCRIT. 39.9 % (36.0-48.0); HEMOGLOBIN. 12.9 g/dL (12.0-16.0); LYMPHOCYTES % 8.5 % (20.0-50.0); MEAN CORPUSCULAR HEMOGLOBIN 22.3 pg (28.0-32.0); MEAN CORPUSCULAR VOLUME 69.3 fL (81.0-99.0); MEAN PLATELET VOLUME 9.2 fl (7.4-10.4); MONOCYTES % 3.2 % (2.0-8.0); NEUTROPHILS % 88.3 % (40.0-76.0); PLATELET 186 x1000/uL (130-400); RED BLOOD CELL COUNT 5.75 mill/uL (4.2-5.4); RED CELL DISTRIBUTION WIDTH 20.6 % (11.6-14.6)
[2021-05-04 05:37] LABS: CHLORIDE 101 mEq/L (98-107)
[2021-05-04] MEDS: DILTIAZEM HCL 30MG TABLET PO SCH (05:52)
[2021-05-04] MEDS: DILTIAZEM HCL 125 MG in DEXT 5% WATER 100 ML IV SCH (05:53)
[2021-05-04 05:59] LABS: DIGOXIN 1.9 ng/mL (0.9-2.0)
[2021-05-04] MEDS: SUCRALFATE 1G TABLET PO SCH ×4 (08:56→20:48)
[2021-05-04] MEDS: SILDENAFIL CITRATE 20MG TABLET PO SCH ×3 (08:56→16:45)
[2021-05-04] MEDS: APIXABAN 5 MG TABLET PO SCH ×2 (08:56→16:44)
[2021-05-04] MEDS: METOPROLOL TARTRATE 50MG TABLET PO SCH (08:57)
[2021-05-04] MEDS: METHYLPREDNISOLONE SOD SUCC 40 MG/ML VIAL IV SCH ×2 (08:58→20:48)
[2021-05-04] MEDS: GUAIFENESIN 600MG ER TABLET PO SCH ×2 (09:00→20:48)
[2021-05-04] MEDS: FUROSEMIDE 40MG/4ML VIAL IVP SCH ×2 (09:00→16:44)
[2021-05-04] MEDS: MIDODRINE HCL 5MG TABLET PO SCH ×3 (09:00→16:45)
[2021-05-04] MEDS: BUDESONIDE 0.5MG/2ML NEB HHN SCH ×2 (09:08→20:24)
[2021-05-04] MEDS ORDERED: POTASSIUM CHLORIDE 20MEQ TABLET SR PO NR (11:00)
[2021-05-04] MEDS: DILTIAZEM HCL 90MG TABLET PO SCH ×2 (11:29→18:29)
[2021-05-04] MEDS: CEFTRIAXONE 1,000 MG in DEXTROSE 5% WATER 50 ML IV SCH (16:44)
[2021-05-04] MEDS ORDERED: DIGOXIN 125MCG TABLET PO SCH (18:00)
[2021-05-04] MEDS: DIGOXIN 125MCG TABLET PO SCH (18:29)
[2021-05-04] MEDS: FAMOTIDINE 20MG TABLET PO SCH (20:48)
[2021-05-04] MEDS: ATORVASTATIN CALCIUM 20MG TABLET PO SCH (20:48)
[2021-05-05 00:03] VITALS: BP 134/72
[2021-05-05] MEDS: DILTIAZEM HCL 90MG TABLET PO SCH ×5 (00:29→23:49)
[2021-05-05 04:00] VITALS: BP 142/61
[2021-05-05] MEDS: SUCRALFATE 1G TABLET PO SCH ×4 (05:52→21:02)
[2021-05-05 07:54] LABS: HEMATOCRIT. 42.7 % (36.0-48.0); MEAN CORPUSCULAR HEMOGLOBIN 22.8 pg (28.0-32.0); MEAN CORPUSCULAR VOLUME 69.5 fL (81.0-99.0); MEAN PLATELET VOLUME 9.4 fl (7.4-10.4); PLATELET 185 x1000/uL (130-400); RED BLOOD CELL COUNT 6.15 mill/uL (4.2-5.4); RED CELL DISTRIBUTION WIDTH 19.8 % (11.6-14.6)
[2021-05-05 08:04] LABS: CHLORIDE 100 mEq/L (98-107)
[2021-05-05 08:08] VITALS: BP 111/67
[2021-05-05 08:30] LABS: DIGOXIN 1.7 ng/mL (0.9-2.0)
[2021-05-05] MEDS: BUDESONIDE 0.5MG/2ML NEB HHN SCH ×2 (08:32→21:37)
[2021-05-05] MEDS: IPRATROPIUM BROMIDE (0.02%) 0.5MG/2.5ML NEB HHN SCH ×3 (08:35→21:37)
[2021-05-05] MEDS: GUAIFENESIN 600MG ER TABLET PO SCH ×2 (09:00→21:01)
[2021-05-05] MEDS: METHYLPREDNISOLONE SOD SUCC 40 MG/ML VIAL IV SCH ×2 (09:35→21:01)
[2021-05-05] MEDS: FUROSEMIDE 40MG/4ML VIAL IVP SCH ×2 (09:36→17:50)
[2021-05-05] MEDS: SILDENAFIL CITRATE 20MG TABLET PO SCH ×3 (09:36→17:51)
[2021-05-05] MEDS: APIXABAN 5 MG TABLET PO SCH ×2 (09:36→17:50)
[2021-05-05] MEDS: MIDODRINE HCL 5MG TABLET PO SCH ×3 (09:37→18:34)
[2021-05-05] MEDS ORDERED: POTASSIUM CHLORIDE 20MEQ TABLET SR PO NR (09:45)
[2021-05-05] MEDS: GUAIFENESIN 200MG/10ML SUGAR FREE UDC PO PRN ×2 (12:49→12:54)
[2021-05-05 12:52] LABS: PLATELET ESTIMATE NORMAL
[2021-05-05 16:00] VITALS: BP 147/78
[2021-05-05] MEDS: DIGOXIN 125MCG TABLET PO SCH (18:34)
[2021-05-05 20:00] VITALS: BP 154/75
[2021-05-05] MEDS: FAMOTIDINE 20MG TABLET PO SCH (21:01)
[2021-05-05] MEDS: ATORVASTATIN CALCIUM 20MG TABLET PO SCH (21:01)
[2021-05-05] MEDS: ACETAMINOPHEN 325MG TABLET PO PRN (21:02)
[2021-05-06] VITALS (7 sets, daily range): BP systolic 114–168; BP diastolic 46–91
[2021-05-06] MEDS: IPRATROPIUM BROMIDE (0.02%) 0.5MG/2.5ML NEB HHN SCH ×4 (00:45→21:25)
[2021-05-06] MEDS: CLONIDINE 0.1MG TABLET PO PRN (04:52)
[2021-05-06] MEDS: SUCRALFATE 1G TABLET PO SCH ×4 (06:16→20:49)
[2021-05-06] MEDS: DILTIAZEM HCL 90MG TABLET PO SCH ×4 (06:17→23:58)
[2021-05-06 07:01] LABS: HEMATOCRIT. 42.1 % (36.0-48.0); HEMOGLOBIN. 13.4 g/dL (12.0-16.0); MEAN CORPUSCULAR HEMOGLOBIN 22.3 pg (28.0-32.0); MEAN CORPUSCULAR VOLUME 70.1 fL (81.0-99.0); MEAN PLATELET VOLUME 9.7 fl (7.4-10.4); PLATELET 194 x1000/uL (130-400); RED BLOOD CELL COUNT 6.01 mill/uL (4.2-5.4); RED CELL DISTRIBUTION WIDTH 19.8 % (11.6-14.6)
[2021-05-06 07:37] LABS: CHLORIDE 100 mEq/L (98-107)
[2021-05-06] MEDS: BUDESONIDE 0.5MG/2ML NEB HHN SCH ×2 (08:17→21:25)
[2021-05-06] MEDS: FUROSEMIDE 40MG/4ML VIAL IVP SCH ×2 (09:02→17:01)
[2021-05-06] MEDS: METHYLPREDNISOLONE SOD SUCC 40 MG/ML VIAL IV SCH ×2 (09:02→20:49)
[2021-05-06] MEDS: APIXABAN 5 MG TABLET PO SCH ×2 (09:02→17:03)
[2021-05-06] MEDS: MIDODRINE HCL 5MG TABLET PO SCH ×3 (09:03→17:07)
[2021-05-06] MEDS: GUAIFENESIN 600MG ER TABLET PO SCH ×2 (09:03→20:49)
[2021-05-06] MEDS: SILDENAFIL CITRATE 20MG TABLET PO SCH ×3 (09:03→17:07)
[2021-05-06 12:41] LABS: PLATELET ESTIMATE NORMAL
[2021-05-06] MEDS: ACETAMINOPHEN 325MG TABLET PO PRN (19:54)
[2021-05-06] MEDS: ATORVASTATIN CALCIUM 20MG TABLET PO SCH (20:49)
[2021-05-06] MEDS: FAMOTIDINE 20MG TABLET PO SCH (20:49)
[2021-05-07] VITALS: BP 140/60
[2021-05-07] MEDS: IPRATROPIUM BROMIDE (0.02%) 0.5MG/2.5ML NEB HHN SCH ×2 (01:11→09:34)
[2021-05-07] MEDS: DILTIAZEM HCL 90MG TABLET PO SCH ×2 (06:15→12:07)
[2021-05-07] MEDS: SUCRALFATE 1G TABLET PO SCH ×2 (06:16→12:06)
[2021-05-07 06:52] LABS: HEMATOCRIT. 43.2 % (36.0-48.0); HEMOGLOBIN. 13.8 g/dL (12.0-16.0); MEAN CORPUSCULAR HEMOGLOBIN 22.5 pg (28.0-32.0); MEAN CORPUSCULAR VOLUME 70.4 fL (81.0-99.0); PLATELET 210 x1000/uL (130-400); RED BLOOD CELL COUNT 6.14 mill/uL (4.2-5.4); RED CELL DISTRIBUTION WIDTH 19.7 % (11.6-14.6)
[2021-05-07 06:53] LABS: CHLORIDE 98 mEq/L (98-107)
[2021-05-07 07:33] LABS: DIGOXIN 1.7 ng/mL (0.9-2.0)
[2021-05-07 08:00] VITALS: BP 154/80
[2021-05-07] MEDS: FUROSEMIDE 40MG/4ML VIAL IVP SCH (08:51)
[2021-05-07] MEDS: METHYLPREDNISOLONE SOD SUCC 40 MG/ML VIAL IV SCH (08:51)
[2021-05-07] MEDS: MIDODRINE HCL 5MG TABLET PO SCH ×2 (08:52→12:07)
[2021-05-07] MEDS: APIXABAN 5 MG TABLET PO SCH (08:52)
[2021-05-07] MEDS: SILDENAFIL CITRATE 20MG TABLET PO SCH ×2 (08:52→12:06)
[2021-05-07] MEDS: GUAIFENESIN 600MG ER TABLET PO SCH (08:52)
[2021-05-07] MEDS: BUDESONIDE 0.5MG/2ML NEB HHN SCH (09:34)
[2021-05-07] MEDS ORDERED: POTASSIUM CHLORIDE 20MEQ TABLET SR PO SCH (11:30)
[2021-05-07 11:46] VITALS: BP 150/72
[2021-05-07] MEDS ORDERED: P20 MT (11:57)
[2021-05-07 12:11] VITALS: BP 150/72
[2021-05-07 16:09] LABS: PLATELET ESTIMATE NORMAL
== END 2021-05-07 14:28 | disposition home or self-care (01) | DRG 602 ==
LOC: ER 15:10 → 8WST 16:24 → EDBEDREQ 16:44 → ENRESERV 04-30 00:02 → CVICU 05-02 18:13 → 7EST 05-05
PROVIDERS: ADMIT Family Medicine; ATTEND Internal Medicine
PROC: 05H433Z Insertion of Infusion Device into Left Innominate Vein, Percutaneous Approach (ICD-10-PCS; principal; 2021-05-04)
PROC: B54NZZA Ultrasonography of Left Upper Extremity Veins, Guidance (ICD-10-PCS; 2021-05-04)
DX: L03.116 Cellulitis of left lower limb (principal); J18.9 Pneumonia, unspecified organism; I50.33 Acute on chronic diastolic (congestive) heart failure; I13.0 Hypertensive heart and chronic kidney disease with heart failure and stage 1 through stage 4 chronic kidney disease, or unspecified chronic kidney disease; J44.1 Chronic obstructive pulmonary disease with (acute) exacerbation; I48.20 Chronic atrial fibrillation, unspecified; E11.22 Type 2 diabetes mellitus with diabetic chronic kidney disease; N18.9 Chronic kidney disease, unspecified; I89.0 Lymphedema, not elsewhere classified; E78.5 Hyperlipidemia, unspecified; D32.0 Benign neoplasm of cerebral meninges; R06.03 Acute respiratory distress; Z20.822 Contact with and (suspected) exposure to COVID-19; R06.89 Other abnormalities of breathing; I27.21 Secondary pulmonary arterial hypertension; R74.8 Abnormal levels of other serum enzymes; E87.6 Hypokalemia; Z85.3 Personal history of malignant neoplasm of breast; Z86.16 Personal history of COVID-19; Z87.11 Personal history of peptic ulcer disease; Z90.10 Acquired absence of unspecified breast and nipple; Z79.899 Other long term (current) drug therapy; Z79.01 Long term (current) use of anticoagulants; Z87.891 Personal history of nicotine dependence
CPT/HCPCS: 36415; 71045; 71250; 76937; 80048; 80053; 80162; 81003; 82550; 82553; 82962; 83036; 83735; 83880; 84132; 84439; 84443; 84481; 84484; 85025; 87070; 87426; 87804; 93005; 93306; 93970; 94640; 97162; 99285; C1725; C1893; J0696; J1160; J1815; J1940; J2370; J2920; J3480; J3490; J7040; J7060; J7626

== ENCOUNTER 2022-01-10 15:06 | Emergency (ER) | payer MEDICARE, OTHER ==
[~2022-01-10] VITALS: Ht 160 cm; Wt 89.0 kg
[~2022-01-10 15:06] MED LIST changes: -ALBU90AE INH; +AMLO5TAB88 PO; +ATOR20TA PO; -ATOR20TA65; +CARV12.545 PO; +FURO40TA5 PO; +HYDR-4134 PO; -METO25TA6 MT; +P20 MT; +PIOG15TA68 PO; +POTA-205 PO; -PRAV80TA21 MT; +SERT25TA74 PO; -SUCR1TAB30 MT
[2022-01-10] MEDS ORDERED: HYDROCODONE/ACETAMINOPHEN 5/325MG TABLET PO ONE (19:15)
[2022-01-10] MEDS ORDERED: HYDR-4001 MT (22:16)
[2022-01-10 22:24] VITALS: BP 168/75
== END 2022-01-10 22:33 | disposition home or self-care (01) ==
LOC: ER 15:06
DX: S81.002A Unspecified open wound, left knee, initial encounter (principal); I48.91 Unspecified atrial fibrillation; I11.0 Hypertensive heart disease with heart failure; I50.9 Heart failure, unspecified; J44.9 Chronic obstructive pulmonary disease, unspecified; W01.0XXA Fall on same level from slipping, tripping and stumbling without subsequent striking against object, initial encounter; Y93.9 Activity, unspecified; Y92.9 Unspecified place or not applicable
CPT/HCPCS: 73562; 73700; 99284